=== PATIENT | male | born 1975 | race Caucasian/White ===

== ENCOUNTER 2018-10-03 13:59 | Emergency (ER) | payer BC ==
[2018-10-03 14:06] VITALS: TEMP 97.9
[2018-10-03 15:18] LABS: Basophils % (A) 0 %; Eosinophils # (A) 0.2 k/uL (0-0.7); Eosinophils % (A) 2 %; HCT 43.6 % (39.0-53.0); HGB 15.4 gm/dL (13.0-17.5); Lymphocytes # (A) 2.9 k/uL (1.0-4.8); Lymphocytes % (A) 39 %; MCH 31.2 pg (25.0-35.0); MCHC 35.3 g/dL (31.0-37.0); MCV 88.5 fL (80.0-100.0); Mean Platelet Volume 7.3; Monocytes # (A) 0.4 k/uL (0-1.0); Monocytes % (A) 5 %; Neutrophils # (A) 3.8 k/uL (1.3-7.7); Neutrophils % (A) 51 %; Platelet Count 225 k/uL (150-450); RBC 4.92 m/uL (4.30-5.90); RDW 12.9 % (11.5-15.5); WBC 7.4 k/uL (3.8-10.6)
[2018-10-03 15:27] LABS: INR 0.9 (<1.2); Partial Thromboplastin Time 22.8 sec (22.0-30.0)
[2018-10-03 15:28] LABS: Albumin 4.6 g/dL (3.5-5.0); Calcium 9.8 mg/dL (8.4-10.2); Potassium 4.2 mmol/L (3.5-5.1); Total Bilirubin 0.6 mg/dL (0.2-1.3); Total Protein 7.7 g/dL (6.3-8.2)
[2018-10-03 15:37] LABS: Creatine Kinase 95 U/L (55-170)
[2018-10-03 15:50] LABS: Troponin I <0.012 ng/mL (0.000-0.034)
--- NOTE | 2018-10-03 16:15 | XR ---
EXAMINATION TYPE: XR chest 2V DATE OF EXAM: 10/03/2018 COMPARISON: NONE HISTORY: Chest pain TECHNIQUE: Frontal and lateral views of the chest are obtained. FINDINGS: Heart and mediastinum are normal. Lungs are clear. Diaphragm is normal. Bony thorax appear s normal. IMPRESSION: Normal chest.
--- NOTE | 2018-10-03 16:21 | ED ---
Psych HPI - General Source: patient, RN notes reviewed Mode of arrival: wheelchair - History of Present Illness MD Complaint: suicidal ideation, feels depressed, other <Isreal Becerra - Last Filed: 10/03/18 16:51> <Victor M Muir - Last Filed: 10/03/18 17:52> - General Chief Complaint: Psychiatric Symptoms Stated Complaint: chest pain, EPS eval Time Seen by Provider: 10/03/18 14:31 - History of Present Illness Initial Comments: This is a 43-year-old male with a history of anxiety depression in the past who states he been feeling depressed and suicidal last several months. He states he as she took a handful his blood pressure medication today with the intent swallowing it changes minus better now. Additionally he's been having intermittent episodes of left-sided chest pain for past 3 days somewhat sharp in nature does seem to radiate somewhat. He denies any particular known injury though he states he is very anxious and tense. He states he's had hypertension since the age of 30 has cardiomegaly. He denies any cough or phlegm production at this time he is a former smoker who quit in 2008. No known heart or lung disease at this time. No other modifying factors. (Isreal Becerra) - Related Data Home Medications Medication Instructions Recorded Confirmed LORazepam [Ativan] 1 mg PO BID 10/03/18 10/03/18 Metoprolol Succinate (ER) [Toprol 100 mg PO DAILY 10/03/18 10/03/18 Xl] Omeprazole 20 mg PO DAILY 10/03/18 10/03/18 Triamterene-Hctz 37.5-25Mg 1 cap PO DAILY 10/03/18 10/03/18 [Dyazide 37.5-25 Capsule] Allergies Allergy/AdvReac Type Severity Reaction Status Date / Time No Known Allergies Allergy Verified 10/03/18 14:49 Review of Systems ROS Other: All systems not noted in ROS Statement are negative. <Isreal Becerra - Last Filed: 10/03/18 16:51> ROS Other: All systems not noted in ROS Statement are negative. <Victor M Muir - Last Filed: 10/03/18 17:52> ROS Statement: Those systems with pertinent positive or pertinent negative responses have been documented in the HPI. Past Medical History Past Medical History: GERD/Reflux, Hypertension History of Any Multi-Drug Resistant Organisms: None Reported Past Surgical History: Adenoidectomy, Tonsillectomy Past Psychological History: Anxiety, Depression Smoking Status: Never smoker Past Alcohol Use History: Occasional Past Drug Use History: Marijuana <Isreal Becerra - Last Filed: 10/03/18 16:51> General Exam Limitations: no limitations General appearance: alert, anxious Head exam: Present: atraumatic, normocephalic, normal inspection Eye exam: Present: normal appearance, PERRL, EOMI. Absent: scleral icterus, conjunctival injection, periorbital swelling ENT exam: Present: normal exam, mucous membranes moist Neck exam: Present: normal inspection, full ROM, other (No stridor JVD or bruits ). Absent: tenderness, meningismus, lymphadenopathy Respiratory exam: Present: normal lung sounds bilaterally, chest wall tenderness Cardiovascular Exam: Present: regular rate, normal rhythm, normal heart sounds. Absent: systolic murmur, diastolic murmur, rubs, gallop, clicks GI/Abdominal exam: Present: soft, normal bowel sounds. Absent: distended, tenderness, guarding, rebound, rigid Extremities exam: Present: normal inspection, full ROM, normal capillary refill. Absent: tenderness, pedal edema, joint swelling, calf tenderness Back exam: Present: normal inspection Neurological exam: Present: alert, oriented X3, CN II-XII intact Psychiatric exam: Present: depressed, suicidal ideation Skin exam: Present: warm, dry, intact, normal color. Absent: rash <Isreal Becerra - Last Filed: 10/03/18 16:51> <Victor M Muir - Last Filed: 10/03/18 17:52> - General Exam Comments Initial Comments: Physical well-developed well-nourished awake alert oriented 3 male (Isreal Becerra) Course <Isreal Becerra - Last Filed: 10/03/18 16:51> <Victor M Muir - Last Filed: 10/03/18 17:52> Vital Signs 10/03/18 14:02 Temperature 97.9 F Pulse Rate 86 Respiratory 16 Rate Blood Pressure 149/96 O2 Sat by Pulse 100 Oximetry - Reevaluation(s) Reevaluation #1: 10/03/18 16:46 The patient medically cleared. His lab work x-ray and EKG are all within normal limits. (Isreal Becerra) Reevaluation #2: 10/03/18 16:51 The patient's care is endorsed to Dr. Muir and her shift change. He has been cleared medically for evaluation by psychiatry. (Isreal Becerra) Medical Decision Making - Lab Data Result diagrams: 10/03/18 14:50 10/03/18 14:50 - EKG Data -: EKG Interpreted by Me EKG shows normal: sinus rhythm, axis, intervals, QRS complexes, ST-T waves (EKG done at the time of admission to the emergency department demonstrates an [place] [address] QRS duration 90 QT since QTC 366/ 437 this is a normal-appearing EKG.) Rate: normal - Radiology Data Radiology results: report reviewed (I did review the imaging and report no acute findings.), image reviewed <Isreal Becerra - Last Filed: 10/03/18 16:51> - Lab Data Result diagrams: 10/03/18 14:50 10/03/18 14:50 <Victor M Muir - Last Filed: 10/03/18 17:52> - Medical Decision Making Case endorsed to me with plans for mental health evaluation and disposition based on their assessment. Mental health did evaluate patient and determined she should be discharged and did provide follow-up information. (Victor M Muir) - Lab Data Lab Results 10/03/18 10/03/18 10/03/18 Range/Units 14:50 14:50 14:50 WBC 7.4 (3.8-10.6) k/uL RBC 4.92 (4.30-5.90) m/uL Hgb 15.4 (13.0-17.5) gm/dL Hct 43.6 (39.0-53.0) % MCV 88.5 (80.0-100.0) fL MCH 31.2 (25.0-35.0) pg MCHC 35.3 (31.0-37.0) g/dL RDW 12.9 (11.5-15.5) % Plt Count 225 (150-450) k/uL Neutrophils % 51 % Lymphocytes % 39 % Monocytes % 5 % Eosinophils % 2 % Basophils % 0 % Neutrophils # 3.8 (1.3-7.7) k/uL Lymphocytes # 2.9 (1.0-4.8) k/uL Monocytes # 0.4 (0-1.0) k/uL Eosinophils # 0.2 (0-0.7) k/uL Basophils # 0.0 (0-0.2) k/uL PT (9.0-12.0) sec INR (<1.2) APTT (22.0-30.0) sec D-Dimer (<0.60) mg/L FEU Sodium 141 (137-145) mmol/L Potassium 4.2 (3.5-5.1) mmol/L Chloride 104 (98-107) mmol/L Carbon Dioxide 27 (22-30) mmol/L Anion Gap 10 mmol/L BUN 14 (9-20) mg/dL Creatinine 1.16 (0.66-1.25) mg/dL Est GFR (CKD-EPI)AfAm 88 (>60 ml/min/1.73 sqM) Est GFR (CKD-EPI)NonAf 76 (>60 ml/min/1.73 sqM) Glucose 90 (74-99) mg/dL Calcium 9.8 (8.4-10.2) mg/dL Magnesium 2.0 (1.6-2.3) mg/dL Total Bilirubin 0.6 (0.2-1.3) mg/dL AST 27 (17-59) U/L ALT 70 (21-72) U/L Alkaline Phosphatase 87 (38-126) U/L Total Creatine Kinase 95 (55-170) U/L CK-MB (CK-2) 1.0 (0.0-2.4) ng/mL CK-MB (CK-2) Rel Index 1.1 Troponin I <0.012 (0.000-0.034) ng/mL Total Protein 7.7 (6.3-8.2) g/dL Albumin 4.6 (3.5-5.0) g/dL 10/03/18 10/03/18 Range/Units 14:50 14:50 WBC (3.8-10.6) k/uL RBC (4.30-5.90) m/uL Hgb (13.0-17.5) gm/dL Hct (39.0-53.0) % MCV (80.0-100.0) fL MCH (25.0-35.0) pg MCHC (31.0-37.0) g/dL RDW (11.5-15.5) % Plt Count (150-450) k/uL Neutrophils % % Lymphocytes % % Monocytes % % Eosinophils % % Basophils % % Neutrophils # (1.3-7.7) k/uL Lymphocytes # (1.0-4.8) k/uL Monocytes # (0-1.0) k/uL Eosinophils # (0-0.7) k/uL Basophils # (0-0.2) k/uL PT 10.0 (9.0-12.0) sec INR 0.9 (<1.2) APTT 22.8 (22.0-30.0) sec D-Dimer 0.29 (<0.60) mg/L FEU Sodium (137-145) mmol/L Potassium (3.5-5.1) mmol/L Chloride (98-107) mmol/L Carbon Dioxide (22-30) mmol/L Anion Gap mmol/L BUN (9-20) mg/dL Creatinine (0.66-1.25) mg/dL Est GFR (CKD-EPI)AfAm (>60 ml/min/1.73 sqM) Est GFR (CKD-EPI)NonAf (>60 ml/min/1.73 sqM) Glucose (74-99) mg/dL Calcium (8.4-10.2) mg/dL Magnesium (1.6-2.3) mg/dL Total Bilirubin (0.2-1.3) mg/dL AST (17-59) U/L ALT (21-72) U/L Alkaline Phosphatase (38-126) U/L Total Creatine Kinase (55-170) U/L CK-MB (CK-2) (0.0-2.4) ng/mL CK-MB (CK-2) Rel Index Troponin I (0.000-0.034) ng/mL Total Protein (6.3-8.2) g/dL Albumin (3.5-5.0) g/dL Disposition <Isreal Becerra - Last Filed: 10/03/18 16:51> Is patient prescribed a controlled substance at d/c from ED?: No Time of Disposition: 17:51 <Victor M Muir - Last Filed: 10/03/18 17:52> Clinical Impression: Depression, Suicidal ideation, Costochondritis Disposition: HOME SELF-CARE Condition: Stable Instructions (If sedation given, give patient instructions): Costochondritis ( ED), Depression (ED) Additional Instructions: Please follow-up with mental health services as directed. Please also follow- up with primary care physician in the next day or 2 for recheck. Return for worsening symptoms or other concerns. Referrals: Aidan Villegas DO [Primary Care Provider] - 1-2 days
[2018-10-03 18:09] VITALS: BP 143/96; PULSE 68; RESP 19
== END 2018-10-03 18:09 | disposition home or self-care (01) ==
LOC: EC 13:59
DX: F32.9 Major depressive disorder, single episode, unspecified (principal); M94.0 Chondrocostal junction syndrome [Tietze]; R45.851 Suicidal ideations; I11.9 Hypertensive heart disease without heart failure; K21.9 Gastro-esophageal reflux disease without esophagitis; F41.9 Anxiety disorder, unspecified; Z87.891 Personal history of nicotine dependence; Z79.899 Other long term (current) drug therapy
CPT/HCPCS: 36415; 71046; 80053; 82075; 82550; 82553; 83735; 84484; 85025; 85379; 85610; 85730; 93005; 99285

== ENCOUNTER 2021-07-13 04:54 | Emergency (ER) | payer BC, OTHER ==
[2021-07-13 05:01] VITALS: TEMP 98
--- NOTE | 2021-07-13 05:08 | ED ---
Chest Pain HPI - General Chief Complaint: Chest Pain Stated Complaint: Chest Pain Time Seen by Provider: 07/13/21 04:59 Source: patient, RN notes reviewed, old records reviewed Mode of arrival: ambulatory Limitations: no limitations - History of Present Illness Initial Comments: This is a 46-year-old male to the emergency department for evaluation patient is no significant medical history. Patient has had chest pain for 3-4 days noticed what work is normal at home. Symptoms come and go. Patient currently is having substernal chest pain going to throat. No other recent travels or sick contacts no cough congestion or shortness of breath. No prior history of chest pain MD Complaint: chest pain -: days(s) (3) Onset: during rest Pain Location: substernal Pain Radiation: back Severity: moderate Severity scale (1-10): 5 Quality: tightness Consistency: intermittent Improves With: nothing Worsens With: nothing Context: recent illness Anginal Symptoms: nausea Other Symptoms: cough Treatments Prior to Arrival: none - Related Data Home Medications Medication Instructions Recorded Confirmed LORazepam [Ativan] 1 mg PO BID 10/03/18 10/03/18 Metoprolol Succinate (ER) [Toprol 100 mg PO DAILY 10/03/18 10/03/18 Xl] Omeprazole 20 mg PO DAILY 10/03/18 10/03/18 Triamterene-Hctz 37.5-25Mg 1 cap PO DAILY 10/03/18 10/03/18 [Dyazide 37.5-25 Capsule] Allergies Allergy/AdvReac Type Severity Reaction Status Date / Time No Known Allergies Allergy Verified 07/13/21 05:01 Review of Systems ROS Statement: Those systems with pertinent positive or pertinent negative responses have been documented in the HPI. ROS Other: All systems not noted in ROS Statement are negative. Past Medical History Past Medical History: GERD/Reflux, Hypertension History of Any Multi-Drug Resistant Organisms: None Reported Past Surgical History: Adenoidectomy, Tonsillectomy Past Psychological History: Anxiety, Depression Smoking Status: Former smoker Past Alcohol Use History: Occasional Past Drug Use History: Marijuana General Exam General appearance: alert, in no apparent distress Head exam: Present: atraumatic, normocephalic, normal inspection Eye exam: Present: normal appearance, PERRL, EOMI. Absent: scleral icterus, conjunctival injection, periorbital swelling ENT exam: Present: normal exam, mucous membranes moist Neck exam: Present: normal inspection. Absent: tenderness, meningismus, lymphadenopathy Respiratory exam: Present: normal lung sounds bilaterally. Absent: respiratory distress, wheezes, rales, rhonchi, stridor Cardiovascular Exam: Present: regular rate, normal rhythm, normal heart sounds. Absent: systolic murmur, diastolic murmur, rubs, gallop, clicks GI/Abdominal exam: Present: soft, normal bowel sounds. Absent: distended, tenderness, guarding, rebound, rigid Extremities exam: Present: normal inspection, full ROM, normal capillary refill. Absent: tenderness, pedal edema, joint swelling, calf tenderness Back exam: Present: normal inspection Neurological exam: Present: alert, oriented X3, CN II-XII intact Psychiatric exam: Present: normal affect, normal mood Skin exam: Present: warm, dry, intact, normal color. Absent: rash Course Vital Signs 07/13/21 07/13/21 07/13/21 04:57 05:25 07:02 Temperature 98.0 F Pulse Rate 82 73 71 Respiratory 22 17 17 Rate Blood Pressure 155/95 138/92 128/84 O2 Sat by Pulse 99 98 98 Oximetry - Reevaluation(s) Reevaluation #1: Medical record is reviewed Patient symptoms are significantly improved in the emergency department Patient informed results and questions answered Chest Pain MDM - MDM 46 male to the emergency department for evaluation of chest pain atypical, no significant cardiac risk factors x-ray EKG and troponin are negative here in the ER patient can be discharged home Disposition Clinical Impression: Chest pain Disposition: HOME SELF-CARE Condition: Good Instructions (If sedation given, give patient instructions): Chest Pain (ED) Is patient prescribed a controlled substance at d/c from ED?: No Referrals: Aidan Holcomb MD [Primary Care Provider] - 1-2 days
[2021-07-13 05:26] VITALS: RESP 17
[2021-07-13 05:36] LABS: Basophils % (A) 1 %; Eosinophils # (A) 0.1 k/uL (0-0.7); Eosinophils % (A) 1 %; HCT 40.7 % (39.0-53.0); HGB 14.6 gm/dL (13.0-17.5); Hyperchromasia Slight; Lymphocytes # (A) 2.2 k/uL (1.0-4.8); Lymphocytes % (A) 35 %; MCHC 35.8 g/dL (31.0-37.0); MCV 86.6 fL (80.0-100.0); Mean Platelet Volume 7.4; Monocytes # (A) 0.3 k/uL (0-1.0); Monocytes % (A) 5 %; Neutrophils # (A) 3.6 k/uL (1.3-7.7); Neutrophils % (A) 56 %; Platelet Count 222 k/uL (150-450); RDW 11.7 % (11.5-15.5); WBC 6.4 k/uL (3.8-10.6)
[2021-07-13 05:49] LABS: Partial Thromboplastin Time 22.3 sec (22.0-30.0); Prothrombin Time 10.3 sec (9.0-12.0)
[2021-07-13 06:22] LABS: ALT 42 U/L (4-49); AST 25 U/L (17-59); African American GFR (CKD) >90 (>60 ml/min/1.73 sqM); Albumin 4.3 g/dL (3.5-5.0); Alkaline Phosphatase 87 U/L (38-126); Anion Gap 7 mmol/L; Blood Urea Nitrogen 10 mg/dL (9-20); Calcium 9.2 mg/dL (8.4-10.2); Carbon Dioxide 26 mmol/L (22-30); Chloride 102 mmol/L (98-107); Glucose 102 mg/dL (74-99); Lipase 143 U/L (23-300); Magnesium 2.2 mg/dL (1.6-2.3); Non-African American GFR(CKD) >90 (>60 ml/min/1.73 sqM); Potassium 3.6 mmol/L (3.5-5.1); Sodium 135 mmol/L (137-145); Total Bilirubin 0.5 mg/dL (0.2-1.3); Total Protein 7.1 g/dL (6.3-8.2)
--- NOTE | 2021-07-13 06:45 | XR ---
EXAMINATION TYPE: XR chest 2V DATE OF EXAM: 07/13/2021 COMPARISON: Chest x-ray October 03, 2018 HISTORY: Chest pain. TECHNIQUE: Frontal and lateral views of the chest are obtained. FINDINGS: Overlying EKG leads redemonstrated. There is no new suspicious focal air space opacity, pl eural effusion, or pneumothorax seen. The cardiac silhouette size is stable and within normal limits . The osseous structures are intact. IMPRESSION: No acute process. No significant change from prior.
[2021-07-13 07:02] VITALS: BP 128/84; PULSE 71
== END 2021-07-13 07:03 | disposition home or self-care (01) ==
LOC: EC 04:54
DX: R07.89 Other chest pain (principal); I10 Essential (primary) hypertension; K21.9 Gastro-esophageal reflux disease without esophagitis; F12.90 Cannabis use, unspecified, uncomplicated; Z87.891 Personal history of nicotine dependence; Z79.899 Other long term (current) drug therapy
CPT/HCPCS: 36415; 71046; 80053; 83690; 83735; 83880; 84484; 85025; 85379; 85610; 85730; 93005; 99285

== ENCOUNTER 2021-07-17 13:42 | Emergency (ER) | payer OTHER ==
[2021-07-17 14:40] LABS: Basophils % (A) 1 %; Eosinophils # (A) 0.1 k/uL (0-0.7); Eosinophils % (A) 1 %; HCT 43.8 % (39.0-53.0); HGB 15.9 gm/dL (13.0-17.5); Lymphocytes # (A) 2.1 k/uL (1.0-4.8); Lymphocytes % (A) 29 %; MCH 31.9 pg (25.0-35.0); MCHC 36.3 g/dL (31.0-37.0); MCV 87.8 fL (80.0-100.0); Mean Platelet Volume 7.4; Monocytes # (A) 0.5 k/uL (0-1.0); Monocytes % (A) 6 %; Neutrophils # (A) 4.5 k/uL (1.3-7.7); Neutrophils % (A) 62 %; Platelet Count 269 k/uL (150-450); RBC 4.99 m/uL (4.30-5.90); RDW 11.8 % (11.5-15.5); WBC 7.4 k/uL (3.8-10.6)
[2021-07-17 14:50] LABS: ALT 44 U/L (4-49); AST 25 U/L (17-59); African American GFR (CKD) >90 (>60 ml/min/1.73 sqM); Albumin 4.9 g/dL (3.5-5.0); Alkaline Phosphatase 100 U/L (38-126); Anion Gap 10 mmol/L; Blood Urea Nitrogen 12 mg/dL (9-20); Calcium 9.7 mg/dL (8.4-10.2); Carbon Dioxide 26 mmol/L (22-30); Chloride 99 mmol/L (98-107); Glucose 87 mg/dL (74-99); INR 0.9 (<1.2); Non-African American GFR(CKD) >90 (>60 ml/min/1.73 sqM); Potassium 4.1 mmol/L (3.5-5.1); Prothrombin Time 9.9 sec (9.0-12.0); Sodium 135 mmol/L (137-145); Total Bilirubin 0.6 mg/dL (0.2-1.3); Total Protein 7.9 g/dL (6.3-8.2)
--- NOTE | 2021-07-17 17:31 | ED ---
General Adult HPI - General Chief complaint: Dizziness Stated complaint: Low BP, Dizziness Time Seen by Provider: 07/17/21 17:05 Source: patient Mode of arrival: wheelchair Limitations: no limitations - History of Present Illness Initial comments: Dictation was produced using [employer] dictation software. please excuse any grammatical, word or spelling errors. Chief Complaint: 46-year-old male presents emergency department for episodic symptoms of low blood pressure, tingling in total body warmth History of Present Illness: He is a 38-year-old male has past medical history of hypertension. Patient takes multiple blood pressure medications. Denies medications for several months. Patient recently recovered from coronavirus that he contracted back in June. Since then he's been having these strange symptoms of palpitations, total body flushing and episodes of hand tingling. Patient has a blood pressure monitor at home. During these episodes he checks his blood pressure noticed a his diastolic blood pressure is sometimes even as low as 20s. It does have a history of heart failure. Since that his ejection fraction is 45%. Patient denies any symptoms now. Denies any symptoms currently. No shortness of breath. The ROS documented in this emergency department record has been reviewed and confirmed by me. Those systems with pertinent positive or negative responses have been documented in the HPI. All other systems are other negative and/or noncontributory. PHYSICAL EXAM: General Impression: Alert and oriented x3, not in acute distress HEENT: Normocephalic atraumatic, extra-ocular movements intact, pupils equal and reactive to light bilaterally, mucous membranes moist. Cardiovascular: Heart regular rate and rhythm Chest: Able to complete full sentences, no retractions, no tachypnea Musculoskeletal: Pulses present and equal in all extremities, no peripheral edema Motor: no focal deficits noted Neurological: CN II-XII grossly intact, no focal motor or sensory deficits noted Skin: Intact with no visualized rashes Psych: Normal affect and mood ED course: 46 yo well-appearing male presents emergency department for episodes of strange symptoms that developed after norberto Covid. Signs upon arrival are within acceptable limits. Physical examination is benign. EKG is unremarkable. Advanced triage protocol was initiated for this gentleman. He did have labs ordered by triage staff. CBC, coag panel, metabolic panel is unremarkable. Patient was observed in emergency department for approximately 3 hours and 46 minutes. Patient seen at bedside at 5:20 PM. Patient states that he feels well currently. His labs are unremarkable and his EKG is benign. Patient has appointment with his primary care physician on Thursday. Patient told that he would be a good candidate for Holter monitoring and wraps adjustments to his blood pressure medications. Return precautions discussed. Patient will be discharged. EKG interpretation: Ventricular rate 82, normal sinus rhythm,. 146, QRS 94, QTC 418. No WA prolongation, no QTC prolongation, no ST or T-wave changes noted. Overall, this EKG is unremarkable - Related Data Home Medications Medication Instructions Recorded Confirmed LORazepam [Ativan] 1 mg PO BID 10/03/18 10/03/18 Metoprolol Succinate (ER) [Toprol 100 mg PO DAILY 10/03/18 10/03/18 Xl] Omeprazole 20 mg PO DAILY 10/03/18 10/03/18 Triamterene-Hctz 37.5-25Mg 1 cap PO DAILY 10/03/18 10/03/18 [Dyazide 37.5-25 Capsule] Allergies Allergy/AdvReac Type Severity Reaction Status Date / Time No Known Allergies Allergy Verified 07/13/21 05:01 Review of Systems ROS Statement: Those systems with pertinent positive or pertinent negative responses have been documented in the HPI. ROS Other: All systems not noted in ROS Statement are negative. Past Medical History Past Medical History: GERD/Reflux, Hypertension History of Any Multi-Drug Resistant Organisms: None Reported Past Surgical History: Adenoidectomy, Tonsillectomy Past Psychological History: Anxiety, Depression Smoking Status: Former smoker Past Alcohol Use History: Occasional Past Drug Use History: Marijuana General Exam Limitations: no limitations Course Vital Signs 07/17/21 14:15 Temperature 98.2 F Pulse Rate 86 Respiratory 19 Rate Blood Pressure 125/81 O2 Sat by Pulse 98 Oximetry Medical Decision Making - Lab Data Result diagrams: 07/17/21 14:33 07/17/21 14:33 Lab Results 07/17/21 07/17/21 07/17/21 Range/Units 14:33 14:33 14:33 WBC 7.4 (3.8-10.6) k/uL RBC 4.99 (4.30-5.90) m/uL Hgb 15.9 (13.0-17.5) gm/dL Hct 43.8 (39.0-53.0) % MCV 87.8 (80.0-100.0) fL MCH 31.9 (25.0-35.0) pg MCHC 36.3 (31.0-37.0) g/dL RDW 11.8 (11.5-15.5) % Plt Count 269 (150-450) k/uL MPV 7.4 Neutrophils % 62 % Lymphocytes % 29 % Monocytes % 6 % Eosinophils % 1 % Basophils % 1 % Neutrophils # 4.5 (1.3-7.7) k/uL Lymphocytes # 2.1 (1.0-4.8) k/uL Monocytes # 0.5 (0-1.0) k/uL Eosinophils # 0.1 (0-0.7) k/uL Basophils # 0.0 (0-0.2) k/uL PT 9.9 (9.0-12.0) sec INR 0.9 (<1.2) Sodium 135 L (137-145) mmol/L Potassium 4.1 (3.5-5.1) mmol/L Chloride 99 (98-107) mmol/L Carbon Dioxide 26 (22-30) mmol/L Anion Gap 10 mmol/L BUN 12 (9-20) mg/dL Creatinine 0.88 (0.66-1.25) mg/dL Est GFR (CKD-EPI)AfAm >90 (>60 ml/min/1.73 sqM) Est GFR (CKD-EPI)NonAf >90 (>60 ml/min/1.73 sqM) Glucose 87 (74-99) mg/dL Calcium 9.7 (8.4-10.2) mg/dL Total Bilirubin 0.6 (0.2-1.3) mg/dL AST 25 (17-59) U/L ALT 44 (4-49) U/L Alkaline Phosphatase 100 (38-126) U/L Troponin I (0.000-0.034) ng/mL Total Protein 7.9 (6.3-8.2) g/dL Albumin 4.9 (3.5-5.0) g/dL 07/17/21 Range/Units 14:33 WBC (3.8-10.6) k/uL RBC (4.30-5.90) m/uL Hgb (13.0-17.5) gm/dL Hct (39.0-53.0) % MCV (80.0-100.0) fL MCH (25.0-35.0) pg MCHC (31.0-37.0) g/dL RDW (11.5-15.5) % Plt Count (150-450) k/uL MPV Neutrophils % % Lymphocytes % % Monocytes % % Eosinophils % % Basophils % % Neutrophils # (1.3-7.7) k/uL Lymphocytes # (1.0-4.8) k/uL Monocytes # (0-1.0) k/uL Eosinophils # (0-0.7) k/uL Basophils # (0-0.2) k/uL PT (9.0-12.0) sec INR (<1.2) Sodium (137-145) mmol/L Potassium (3.5-5.1) mmol/L Chloride (98-107) mmol/L Carbon Dioxide (22-30) mmol/L Anion Gap mmol/L BUN (9-20) mg/dL Creatinine (0.66-1.25) mg/dL Est GFR (CKD-EPI)AfAm (>60 ml/min/1.73 sqM) Est GFR (CKD-EPI)NonAf (>60 ml/min/1.73 sqM) Glucose (74-99) mg/dL Calcium (8.4-10.2) mg/dL Total Bilirubin (0.2-1.3) mg/dL AST (17-59) U/L ALT (4-49) U/L Alkaline Phosphatase (38-126) U/L Troponin I <0.012 (0.000-0.034) ng/mL Total Protein (6.3-8.2) g/dL Albumin (3.5-5.0) g/dL Disposition Clinical Impression: Palpitations Disposition: HOME SELF-CARE Condition: Good Instructions (If sedation given, give patient instructions): Heart Palpitations (ED) Is patient prescribed a controlled substance at d/c from ED?: No Referrals: Aidan Holcomb MD [Primary Care Provider] - 1-2 days
[2021-07-17 20:33] VITALS: BP 140/74; PULSE 70; RESP 18; TEMP 98
== END 2021-07-17 18:10 | disposition home or self-care (01) ==
LOC: EC 13:42
DX: R00.2 Palpitations (principal); F32.A Depression, unspecified; F41.9 Anxiety disorder, unspecified; I10 Essential (primary) hypertension; F12.90 Cannabis use, unspecified, uncomplicated; Z87.891 Personal history of nicotine dependence; Z72.89 Other problems related to lifestyle
CPT/HCPCS: 36415; 80053; 84484; 85025; 85610; 93005; 99284

== ENCOUNTER 2024-01-23 14:58 | Emergency (ER) | payer OTHER ==
[2024-01-23 15:05] VITALS: RESP 16
--- NOTE | 2024-01-23 15:32 | ED ---
General Adult HPI - General Chief complaint: Dizziness Stated complaint: dizzy SOB Time Seen by Provider: 01/23/24 14:59 Source: patient Mode of arrival: ambulatory Limitations: no limitations - History of Present Illness Initial comments: Dictation was produced using [employer] dictation software. please excuse any grammatical, word or spelling errors. Chief Complaint: 48-year-old male presents emergency department with headache History of Present Illness: Patient is a 48-year-old male presents emergency department headache his headache began at approximately 3. States that it was a severe headache. Patient states that is also thunderclap in nature. Motrin went back to bed felt fine. He woke up still had a mild headache though significantly improved. He checked his blood pressure which is generally controlled well with antihypertensive medications. Found that it was high and went to the urgent care. He was evaluated the urgent care told to come to the ER for further care. Patient [place] any numbness tingling paresthesias. He states that the headache is significantly improved. States that is holoacranial throbbing in nature. Patient denies any history of headaches. The ROS documented in this emergency department record has been reviewed and confirmed by me. Those systems with pertinent positive or negative responses have been documented in the HPI. All other systems are other negative and/or noncontributory. - Related Data Home Medications Medication Instructions Recorded Confirmed LORazepam [Ativan] 1 mg PO BID 10/03/18 10/03/18 Metoprolol Succinate (ER) [Toprol 100 mg PO DAILY 10/03/18 10/03/18 Xl] Omeprazole 20 mg PO DAILY 10/03/18 10/03/18 Triamterene-Hctz 37.5-25Mg 1 cap PO DAILY 10/03/18 10/03/18 [Dyazide 37.5-25 Capsule] Allergies Allergy/AdvReac Type Severity Reaction Status Date / Time No Known Allergies Allergy Verified 07/13/21 05:01 Review of Systems ROS Statement: Those systems with pertinent positive or pertinent negative responses have been documented in the HPI. ROS Other: All systems not noted in ROS Statement are negative. Past Medical History Past Medical History: GERD/Reflux, Hypertension History of Any Multi-Drug Resistant Organisms: None Reported Past Surgical History: Adenoidectomy, Tonsillectomy Past Psychological History: Anxiety, Depression Smoking Status: Former smoker Past Alcohol Use History: Occasional Past Drug Use History: Marijuana General Exam - General Exam Comments Initial Comments: PHYSICAL EXAM: General Impression: Alert and oriented x3, not in acute distress HEENT: Normocephalic atraumatic, extra-ocular movements intact, pupils equal and reactive to light bilaterally, mucous membranes moist. Cardiovascular: Heart regular rate and rhythm Chest: Able to complete full sentences, no retractions, no tachypnea Abdomen: abdomen soft, non-tender, non-distended, no organomegaly Musculoskeletal: Pulses present and equal in all extremities, no peripheral edema Motor: no focal deficits noted Neurological: CN II-XII grossly intact, no focal motor or sensory deficits noted Skin: Intact with no visualized rashes Psych: Normal affect and mood Limitations: no limitations Course Vital Signs 01/23/24 01/23/24 15:03 15:29 Temperature 98.3 F Pulse Rate 76 Respiratory 16 Rate Blood Pressure 165/107 138/100 O2 Sat by Pulse 98 Oximetry EKG Findings - EKG Comments: EKG Findings:: My EKG interpretation: Ventricular rate 71, sinus rhythm,. 142, cures 113, QTc 409. No [place] prolongation, no QTC prolongation, no ST or T-wave changes noted. Overall, this EKG is unremarkable Medical Decision Making - Medical Decision Making Was pt. sent in by a medical professional or institution (DIANA [facility], FOOD PRESERVATION SCIENTIST, urgent care, hospital, or [facility]...) When possible be specific @ -No Did you speak to anyone other than the patient for history (EMS, parent, family, police, friend...)? What history was obtained from this source @ -No Did you review nursing and triage notes (agree or disagree)? Why? @ -I reviewed and agree with nursing and triage notes Were old charts reviewed (outside hosp., previous admission, EMS record, old EKG, old radiological studies, urgent care reports/EKG's, [facility] records)? Report findings @ -No old charts were reviewed Differential Diagnosis (chest pain, altered mental status, abdominal pain women, abdominal pain men, vaginal bleeding, musculoskeletal, weakness, fever, dyspnea, syncope, headache, dizziness, GI bleed, back pain, seizure, CVA, palpatations, mental health)? @ -Differential Headache: Migraine, tension, cluster, carbon monoxide, central venous thrombosis, pension karma temporal arteritis, acute closure glaucoma, intercranial hemorrhage, mastoiditis, sinusitis, head injury, this is not meant to be an all-inclusive list. EKG interpreted by me (3pts min.). @ -As above X-rays interpreted by me (1pt min.). @ -Chest x-ray shows no acute processes CT interpreted by me (1pt min.). @ -CT brain is negative for any acute processes U/S interpreted by me (1pt. min.). @ -None done What testing was considered but not performed or refused? (CT, X-rays, U/S, labs)? Why? @ -None What meds were considered but not given or refused? Why? @ -None Did you discuss the management of the patient with other professionals (professionals i.e. , PA, FOOD PRESERVATION SCIENTIST, lab, RT, psych nurse, social work therapist, highway administrative engineer, teacher, regulatory compliance officer, pillowcase folder)? Give summary @ -No Was smoking cessation discussed for >3mins.? @ -No Was critical care preformed (if so, how long)? @ -No Were there social determinants of health that impacted care today? How? (Homelessness, low income, unemployed, alcoholism, drug addiction, transportation, low edu. Level, literacy, decrease access to med. care, [facility], rehab)? @ -No Was there de-escalation of care discussed even if they declined (Discuss DNR or withdrawal of care, Hospice)? DNR status @ -No What co-morbidities impacted this encounter? (DM, HTN, Smoking, COPD, CAD, Cancer, CVA, ARF, Chemo, Hep., AIDS, mental health diagnosis, sleep apnea, morbid obesity)? @ -None Was patient admitted / discharged? Hospital course, mention meds given and route, prescriptions, significant lab abnormalities, going to OR and other pertinent info. @ -48-year-old male presents to the emergency department with headache. Patient has history of controlled hypertension managed with medications. Vital signs upon arrival are within acceptable limits. Patient well-appearing at the bedside complaining of headache that is holocranial and focused to his left forehead area. Evaluation obtained. Patient given headache cocktail. Chest x- ray and CT brain are negative. Reevaluated again at the bedside at 5:00 PM. Risk and benefits were discussed regarding lumbar puncture since patient initially complained of worse headache of his life along with thunderclap. He then said that he went to bed with a headache last night. Patient well- appearing at the bedside without any other associated symptoms. Recommended that lumbar puncture be performed to rule out any sort of intracranial bleed. Patient felt that that was not necessary and he feels significantly better. He was also offered hospital admission consultation to neurology. Patient would prefer to be discharged and return to the emergency department if his symptoms acutely worsen. Patient well-appearing at the bedside states that his headache is almost resolved. Patient discharged. Told to follow-up with primary care doctor. Strict return precautions discussed. Undiagnosed new problem with uncertain prognosis? @ -No Drug Therapy requiring intensive monitoring for toxicity (Heparin, Nitro, Insulin, Cardizem)? @ -No Were any procedures done? @ -No Diagnosis/symptom? Acute, or Chronic, or Acute on Chronic? Uncomplicated (without systemic symptoms) or Complicated (systemic symptoms)? @ -Acute headache Side effects of treatment? @ -No Exacerbation, Progression, or Severe Exacerbation? @ -No Poses a threat to life or bodily function? How? (Chest pain, [place], [place], pneumonia, PE, COPD, DKA, ARF, appy, cholecystitis, CVA, Diverticulitis, Homicidal, Suicidal, threat to staff... and all critical care pts) @ -No - Lab Data Result diagrams: 01/23/24 15:54 01/23/24 15:54 Lab Results 01/23/24 01/23/24 Range/Units 15:54 15:54 WBC 8.3 (3.8-10.6) k/uL RBC 4.90 (4.30-5.90) m/uL Hgb 15.5 (13.0-17.5) gm/dL Hct 43.4 (39.0-53.0) % MCV 88.4 (80.0-100.0) fL MCH 31.5 (25.0-35.0) pg MCHC 35.7 (31.0-37.0) g/dL RDW 13.5 (11.5-15.5) % Plt Count 219 (150-450) k/uL MPV 8.2 Neutrophils % 60 % Lymphocytes % 30 % Monocytes % 7 % Eosinophils % 1 % Basophils % 0 % Neutrophils # 4.9 (1.3-7.7) k/uL Lymphocytes # 2.5 (1.0-4.8) k/uL Monocytes # 0.6 (0-1.0) k/uL Eosinophils # 0.1 (0-0.7) k/uL Basophils # 0.0 (0-0.2) k/uL Sodium 137 (137-145) mmol/L Potassium 3.8 (3.5-5.1) mmol/L Chloride 105 (98-107) mmol/L Carbon Dioxide 25 (22-30) mmol/L Anion Gap 7 mmol/L BUN 12 (9-20) mg/dL Creatinine 0.92 (0.66-1.25) mg/dL Est GFR (CKD-EPI)AfAm >90 (>60 ml/min/1.73 sqM) Est GFR (CKD-EPI)NonAf >90 (>60 ml/min/1.73 sqM) Glucose 78 (74-99) mg/dL Calcium 9.3 (8.4-10.2) mg/dL Total Bilirubin 0.6 (0.2-1.3) mg/dL AST 32 (17-59) U/L ALT 52 H (4-49) U/L Alkaline Phosphatase 92 (38-126) U/L Total Protein 7.4 (6.3-8.2) g/dL Albumin 4.7 (3.5-5.0) g/dL Disposition Clinical Impression: Headache Disposition: HOME SELF-CARE Condition: Good Instructions (If sedation given, give patient instructions): Acute Headache (ED) Is patient prescribed a controlled substance at d/c from ED?: No Referrals: Aidan Holcomb MD [Primary Care Provider] - 1-2 days Time of Disposition: 17:18
[2024-01-23] MEDS: SODIUM CHLORIDE 0.9% 1,000 ML IV STA (16:00)
[2024-01-23] MEDS: ONDANSETRON 4 MG/2 ML VIAL IVP STA (16:01)
[2024-01-23] MEDS: diphenhydrAMINE 50 MG/ML 1 ML VIAL IVP STA (16:06)
[2024-01-23 16:26] LABS: Basophils % (A) 0 %; Eosinophils # (A) 0.1 k/uL (0-0.7); Eosinophils % (A) 1 %; HCT 43.4 % (39.0-53.0); HGB 15.5 gm/dL (13.0-17.5); Lymphocytes # (A) 2.5 k/uL (1.0-4.8); Lymphocytes % (A) 30 %; MCH 31.5 pg (25.0-35.0); MCHC 35.7 g/dL (31.0-37.0); MCV 88.4 fL (80.0-100.0); Mean Platelet Volume 8.2; Monocytes # (A) 0.6 k/uL (0-1.0); Monocytes % (A) 7 %; Neutrophils # (A) 4.9 k/uL (1.3-7.7); Neutrophils % (A) 60 %; Platelet Count 219 k/uL (150-450); RDW 13.5 % (11.5-15.5); WBC 8.3 k/uL (3.8-10.6)
[2024-01-23 16:28] LABS: ALT 52 U/L (4-49); AST 32 U/L (17-59); African American GFR (CKD) >90 (>60 ml/min/1.73 sqM); Albumin 4.7 g/dL (3.5-5.0); Alkaline Phosphatase 92 U/L (38-126); Anion Gap 7 mmol/L; Blood Urea Nitrogen 12 mg/dL (9-20); Calcium 9.3 mg/dL (8.4-10.2); Carbon Dioxide 25 mmol/L (22-30); Chloride 105 mmol/L (98-107); Glucose 78 mg/dL (74-99); Non-African American GFR(CKD) >90 (>60 ml/min/1.73 sqM); Potassium 3.8 mmol/L (3.5-5.1); Sodium 137 mmol/L (137-145); Total Bilirubin 0.6 mg/dL (0.2-1.3); Total Protein 7.4 g/dL (6.3-8.2)
--- NOTE | 2024-01-23 16:49 | XR ---
EXAMINATION TYPE: XR chest 2V DATE OF EXAM: 01/23/2024 3:35 PM CLINICAL INDICATION:Male, 48 years old with history of hemoptysis; [facility] COMPARISON: Chest radiographs from TECHNIQUE: XR chest 2V Frontal and lateral views of the chest. FINDINGS: Lungs/Pleura: There is no evidence of pleural effusion, focal consolidation, or pneumothorax. Pulmonary vascularity: Unremarkable. Heart/mediastinum: Cardiomediastinal silhouette is unremarkable. Musculoskeletal: No acute osseous pathology. IMPRESSION: No acute cardiopulmonary disease/process.
--- NOTE | 2024-01-23 17:03 | CT ---
EXAMINATION TYPE: CT brain wo con CT DLP: 1168.4 mGycm, Automated exposure control for dose reduction was used. DATE OF EXAM: 01/23/2024 3:43 PM COMPARISON: None. CLINICAL INDICATION:Male, 48 years old with history of hemoptysis, Dizziness. TECHNIQUE: Brain: Axial CT images of the brain were obtained with coronal and sagittal reformats created and rev iewed. Contrast used: None. Oral contrast used: None. FINDINGS: Brain: Extra-axial spaces: No abnormal extra-axial fluid collections. Ventricular system: Within normal limits Cerebral parenchyma: No acute intraparenchymal hemorrhage or mass effect. The haas-white junction is well differentiated. Cerebellum: Unremarkable. Mass effect: No evidence of midline shift. Intracranial vasculature: unremarkable Soft tissues: Normal. Calvarium/osseous structures: No depressed skull fracture. Paranasal sinuses and mastoid air cells: Mild scattered paranasal sinus disease. Visualized orbits: Orbital contents are intact. IMPRESSION: No acute intracranial process.
[2024-01-23] MEDS: KETOROLAC 15 MG/ML 1 ML VIAL IVP STA (17:22)
[2024-01-23 17:29] VITALS: BP 106/67; PULSE 87; TEMP 98
== END 2024-01-23 17:29 | disposition home or self-care (01) ==
LOC: EC 14:58
DX: R51.9 Headache, unspecified (principal); F12.90 Cannabis use, unspecified, uncomplicated; Z87.891 Personal history of nicotine dependence
CPT/HCPCS: 99285; 96374; 96375 ×2; 96361; 36415; 93005; 80053; 85025; 71046; 70450; J1200; J2405; J1885

== ENCOUNTER → 2024-08-01 | Outpatient (CLI) | payer OTHER ==
[2024-08-01 10:48] VITALS: BP 142/80; PULSE 110; RESP 16; TEMP 98.2
--- NOTE | 2024-08-01 11:20 | P.SLEEP ---
History of Present Illness DATE: 08/01/2024 CONSULTATION/NEW PATIENT EVALUATION HISTORY OF PRESENT ILLNESS/SLEEP-WAKE EVALUATION: 49-year-old gentleman had been evaluated in the sleep center for possible obstructive sleep apnea hypopnea syndrome. SLEEP SCHEDULE: Usually sleep schedule from 10 PM to 7:30 AM on weekdays and 8 to 9 AM on weekend. FALLING ASLEEP: Usually no significant problems with falling asleep. DURING SLEEP: Patient has occasional mild snoring, has episodes of stop breathing during the sleep, palpitation, sweating. Patient wakes up from sleep up to 3 times with nocturia, limb movements during the sleep. No history of hypnogogical hallucinations, sleep paralysis, or cataplexy. DURING THE DAY/WAKE STATE: In the morning patient wake up tired, has episodes of depression and anxiety, sexual dysfunction. Robert sleepiness scale is 2. Patient usually does not take naps. PAST MEDICAL HISTORY: Atrial fibrillation, hypertension, seasonal allergy, headaches, acid reflux, anxiety. PAST SURGICAL HISTORY: Tonsillectomy, adenoidectomy. MEDICATIONS: Please see below. SOCIAL HISTORY: Please see below. FAMILY HISTORY: Please see below. REVIEW OF SYSTEMS: Multiple awakenings from sleep, witnessed sleep apneas. No fevers. No double vision. No recent chest pain. No shortness of breath. No abdominal pain. No bleeding episodes. No blood in urine. No seizure episodes. PHYSICAL EXAMINATION: GENERAL: A pleasant patient without any distress. VITAL SIGNS: Please see below, weight 286 pounds, BMI 37.7. HEENT: PERRLA, EOMI. Evaluation of oropharynx showed tongue protrudes midline, low position of soft palate Mallampati 3, big uvula. NECK: Supple. No JVD. Thyroid is not palpable. 16-3/4 inches in circumference. LUNGS: Clear to percussion and to auscultation. Good air exchange. No wheezing or rhonchi. HEART: S1, S2 regular. No murmurs, gallops or rubs. ABDOMEN: Soft and nontender. Bowel sounds are present. No organomegaly appreciated. EXTREMITIES: No clubbing or cyanosis. IRON ERECTOR: Awake, alert, and oriented x3. Cranial nerves 2 to 7 intact. There is no fasciculation or atrophy noted. No focal deficits observed. ASSESSMENT: 1. Multiple awakenings from sleep, small oropharyngeal airspace, witnessed episodes of stop breathing during the sleep. Obstructive sleep apnea hypopnea syndrome. 2. Obesity, BMI 37.7. 3. Atrial fibrillation. 4. Hypertension. 5 seasonal allergy. 6 . Acid reflux. 7. Anxiety. 8. Status post tonsillectomy and adenoidectomy. PLAN: 1. Polysomnography for evaluation of patient's breathing during sleep. 2. CPAP/BiPAP titration if sleep study confirms obstructive sleep apnea- hypopnea syndrome. 3. Preferable position during sleep on the side. 4. No driving if patient feels any sleepiness. Patient is aware of civil and criminal liability for unsafe driving. 5. Sleep hygiene with regular sleep time for at least 7.5-8 hours. 6. Watching and losing weight. Thank you very much for referring this patient for consultation. Sincerely, Cy Orozco MD, PhD, FAASM. Diplomat of [place] [employer], Sleep Medicine Board by [place] [employer] [place] [employer] [facility] [place] cc: Ramin Wilder DO Past Medical History Past Medical History: Atrial Fibrillation, GERD/Reflux, Hypertension History of Any Multi-Drug Resistant Organisms: None Reported Past Surgical History: Adenoidectomy, Tonsillectomy Past Anesthesia/Blood Transfusion Reactions: No Reported Reaction Past Psychological History: Anxiety, Depression Smoking Status: Former smoker Past Alcohol Use History: Occasional Past Drug Use History: Marijuana - Past Family History Mother Family Medical History: Coronary Artery Disease (CAD), CVA/TIA, Hypertension Father Additional Family Medical History / Comment(s): Emphysema Medications and Allergies Home Medications Medication Instructions Recorded Confirmed Type LORazepam [Ativan] 1 mg PO BID 10/03/18 08/01/24 History Metoprolol Succinate (ER) [Toprol 100 mg PO DAILY 10/03/18 08/01/24 History Xl] Omeprazole 20 mg PO DAILY 10/03/18 08/01/24 History Triamterene-Hctz 37.5-25Mg 1 cap PO DAILY 10/03/18 08/01/24 History [Dyazide 37.5-25 Capsule] Apixaban [Eliquis] 5 mg PO DAILY 08/01/24 08/01/24 History FLUoxetine HCL [PROzac] 20 mg PO DAILY 08/01/24 08/01/24 History dilTIAZem HCL [dilTIAZem HCL 24Hr 180 mg PO DAILY 08/01/24 08/01/24 History ER (CD)] Allergies Allergy/AdvReac Type Severity Reaction Status Date / Time No Known Allergies Allergy Verified 07/13/21 05:01 Physical Exam Vitals: Vital Signs Temp Pulse Resp BP Pulse Ox 08/01/24 10:46 98.2 F 110 H 16 142/80 98 Intake and Output 07/31/24 08/01/24 08/01/24 22:59 06:59 14:59 Other: Weight 129.727 kg Sleep Note - Sleep Data ESS Total: 2 - Sleep Note Sleep Note: Temperature: 98.2 F Pulse Rate: 110 Respiratory Rate: 16 Blood Pressure: 142/80 SpO2: 98 Height: 6 ft 1 in Weight: 129.727 kg BMI: Neck Circumference: 16.7
== END ==
LOC: 3 N SLEEP 10:38
PROVIDERS: ATTEND Internal Medicine
DX: G47.33 Obstructive sleep apnea (adult) (pediatric) (principal); E66.9 Obesity, unspecified; Z68.37 Body mass index [BMI] 37.0-37.9, adult; I10 Essential (primary) hypertension; I48.91 Unspecified atrial fibrillation; K21.9 Gastro-esophageal reflux disease without esophagitis; F41.9 Anxiety disorder, unspecified; Z98.890 Other specified postprocedural states; Z87.891 Personal history of nicotine dependence; Z79.01 Long term (current) use of anticoagulants; Z79.899 Other long term (current) drug therapy
CPT/HCPCS: 99211

== ENCOUNTER 2024-08-24 19:45 | Outpatient (CLI) | payer OTHER ==
--- NOTE | 2024-08-25 15:38 | P.PCN ---
Description of Procedure: POLYSOMNOGRAPHY REPORT PROCEDURE(S)/DATE(S): Polysomnography 08/24/2024 CLINICAL: Patient has been seen in the sleep center for evaluation of obstructive sleep apnea-hypopnea syndrome. Please see my consultation. Sleep study has been done for evaluation of patient breathing during the sleep. PROCEDURE: The standard montage for clinical polysomnography included the electroencephalogram, the electrooculogram, the mentalis surface electromyography and Lead II cardiography. The respiratory battery consisted of measurements of nasal/buccal air flow, pressure transducer measurements from nose, thoracic and/or abdominal effort and intercostal surface electromyography. Video monitoring has been done to check for any parasomnia events. Nocturnal oxyhemoglobin saturations were obtained by finger oximetry. Step-reyes titration with positive airway pressure was utilized to control the respiratory events, if necessary. RESULTS: During the diagnostic sleep study sleep efficiency was decreased to 69.5%. Latency to sleep onset was prolonged to 32.0 min. Sleep architecture showed stage NI was significantly increased to 24.2%, Delta sleep was absent 0%, REM sleep was increased to 33.5%. REM sleep latency very short 19.5 minutes. Respiratory channel showed 0 obstructive apneas, 0 mixed apneas, 0 central apneas, 29 hypopneas with lowest oxygen level 83%. Total apnea hypopnea index was 6.5. Heart rate was in the range between 58 and 82, average 69, atrial fibrillation. EMG showed 48.9 periodic limb movements per hour with 0.7 micro-arousals per hour. IMPRESSIONS: 1. Obstructive sleep apnea hypopnea syndrome in mild range. 2. Significant periodic limb movements have been documented. 3. Sleep onset REM have been documented during polysomnogram, which may indicate possibility of narcolepsy. 4. Hypertension. 5. Atrial fibrillation Please see other impressions from consultation PLAN: 1. Patient will be started on treatment with AutoPap and should use equipment every night for the whole night.. 2. Losing weight program. 3. Sleep hygiene with regular time in bed for at least 7-1/2 hours. 4. No driving if feeling sleepiness. 5. Please check iron profile including ferritin level. Low level of iron may increase the risk for periodic limb movements. 6. I will see patient for follow-up visit to discuss results of the sleep study, evaluate clinical response on treatment with CPAP and [place] adjustments related to mask fitting pressure and humidification. In case if patient will continue symptoms of significant excessive daytime sleepiness while on treatment with CPAP, we may consider multiple sleep latency test. Thank you very much for allowing me to participate in the management of your patient. Sincerely, Cy Orozco MD, PhD, FAASM. Diplomat of [place] [employer], Sleep Medicine Board by [place] [employer] Event Coordinator [employer] [facility] [place] cc: Ramin Wilder DO
== END 2024-08-25 04:54 | disposition home or self-care (01) ==
LOC: 3 N SLEEP 19:45
PROVIDERS: ATTEND Internal Medicine
DX: G47.33 Obstructive sleep apnea (adult) (pediatric) (principal); G47.61 Periodic limb movement disorder; I10 Essential (primary) hypertension; I48.91 Unspecified atrial fibrillation; G47.52 REM sleep behavior disorder; Z79.899 Other long term (current) drug therapy
CPT/HCPCS: 95810

== ENCOUNTER 2024-09-19 11:39 | Day surgery (SDC) | payer OTHER ==
[2024-09-14 13:01] VITALS: BMI 35.3
[~2024-09-19 11:39] MED LIST: HYDROmorphone 0.5 MG/0.5 ML SYRINGE IVP PRN; LACTATED RINGERS 1,000 ML IV SCH; SODIUM CHLORIDE 0.9% 1,000 ML IV SCH
[2024-09-19 12:49] LABS: Glucose,Whole Blood 87 mg/dL (70-110)
[2024-09-19] MEDS: MIDAZOLAM 2 MG/2 ML VIAL IV ONE (12:53)
[2024-09-19] MEDS: IV FLUID CONTINUATION 1,000 ML IV ONE ×2 (13:05→14:13)
[2024-09-19 13:16] LABS: ALT 39 U/L (4-49); AST 35 U/L (17-59); African American GFR (CKD) >90 (>60 ml/min/1.73 sqM); Albumin 4.4 g/dL (3.5-5.0); Alkaline Phosphatase 102 U/L (38-126); Anion Gap 10 mmol/L; Blood Urea Nitrogen 11 mg/dL (9-20); Calcium 9.3 mg/dL (8.4-10.2); Carbon Dioxide 28 mmol/L (22-30); Chloride 100 mmol/L (98-107); Glucose 86 mg/dL (74-99); Non-African American GFR(CKD) 90 (>60 ml/min/1.73 sqM); Sodium 138 mmol/L (137-145); Total Bilirubin 0.8 mg/dL (0.2-1.3); Total Protein 7.1 g/dL (6.3-8.2)
[2024-09-19] MEDS ORDERED: PHENYLEPHRINE-0.9% NACL SYG 1,000 MCG/10 ML SYRINGE ONE (14:12)
[2024-09-19] MEDS ORDERED: ISOPROTERENOL 250 MCG/1.25 ML SYR IV ONE (14:12)
[2024-09-19] MEDS ORDERED: VASOPRESSIN 20 UNIT/ML 1 ML VIAL ONE (14:12)
[2024-09-19] MEDS ORDERED: PHENYLEPHRINE 10 MG/ML VIAL ONE (14:12)
[2024-09-19] MEDS ORDERED: fentaNYL (PF) 50 MCG/ML 2 ML AMP ONE (14:12)
[2024-09-19] MEDS ORDERED: SUCCINYLCHOLINE CHLORIDE 200 MG/10 ML VIAL IV ONE (14:12)
[2024-09-19] MEDS ORDERED: HEPARIN SODIUM,PORCINE 10,000 UNIT/ML 1 ML VIAL ONE (14:12)
[2024-09-19] MEDS ORDERED: PROPOFOL 10 MG/ML 20 ML VIAL IV ONE (14:12)
[2024-09-19] MEDS ORDERED: MIDAZOLAM 2 MG/2 ML VIAL ONE (14:12)
[2024-09-19] MEDS: HEPARIN SODIUM,PORCINE 10,000 UNIT in SODIUM CHLORIDE 0.9% 1,000 ML IRRIGATION ONE (14:13)
[2024-09-19] MEDS: HEPARIN SODIUM,PORCINE (1 ML) 2,500 UNIT in SODIUM CHLORIDE 0.9% 250 ML IRRIGATION ONE (14:14)
[2024-09-19] MEDS: HEPARIN SOD,PORK IN 0.45% NACL 25,000 UNIT in 0.45% NACL 1 250ML.BAG IV ONE (14:14)
[2024-09-19] MEDS: LIDOCAINE 1% INJ 10MG/ML (20 ML MDV) SQ ONE ×2 (14:53→14:56)
[2024-09-19] MEDS: IOPAMIDOL-370 100ML BTL INJ ONE (14:59)
[2024-09-19] MEDS: LACTATED RINGERS 1,000 ML IV ONE (16:40)
--- NOTE | 2024-09-19 17:33 | P.PRLE ---
RE: LexaalixAidan Dear Vlad Thank you for referring Aidan Tamayo for management of recurrent, long paroxysms of atrial fibrillation. Today he was in atrial fibrillation and had been so for the past week. Although his pattern is paroxysmal, he experiences prolonged episodes lasting for over a week at a time. He underwent successful A-fib ablation with 1. Antral level pulmonary vein isolation with complete entrance block. 2. Ablation of the left atrial roof with successful ablation of the roof electrograms There was termination of atrial fibrillation just after the left atrial roof was completed. Intracardiac echo showed 1. a very enlarged left atrium of greater than 5.5 cm measured from the fossa ovalis to the left sided pulmonary veins 2. Mild thickening of the pericardium suggestive of past pericarditis I have asked him to continue apixaban 5 mg twice daily uninterrupted for the next 2 months and have stopped diltiazem. He will continue all his other medications unchanged and will see you in about a week. I applied the Vascade closure devices on the 2 left femoral 8 [place] venous accesses and a combination of Perclose plus Vascade XL for the 16 [place] venous sheath on the right femoral vein Good hemostasis was achieved Thank you for entrusting me with the care of the patient Warm regards Sincerely Kobe Villasenor
--- NOTE | 2024-09-19 17:36 | P.HPCAR ---
History of Present Illness This is Dr. Villasenor dictating an H/P on this patient The patient was interviewed and examined IMPRESSION / ASSESSMENT: Long paroxysms of atrial fibrillation, symptomatic with shortness of breath lightheadedness and palpitations Past history of morbid obesity with significant weight reduction Past history of alcohol abuse, with significant reduction In atrial fibrillation today and has been so for the past week PLAN: Proceed with A-fib ablation. Continue anticoagulation with Eliquis, heparin dose calculated Following ablation will consider stopping Cardizem CD HPI Patient has been in atrial fibrillation for the last 1 week with associated palpitations and shortness of breath. No chest discomfort angina or loss of consciousness He denies any fever chills cough and upper respiratory infection ROS: No fever chills or rigors, no cough, phlegm or expectoration, no nausea, vomiting or diarrhea, no hematuria, dysuria, no musculoskeletal complaints, no strokes or seizures, no skin lesions. EXAMINATION: Pulse rate 118 beats a minute at rest, afebrile Blood pressure 142/88 mmHg Heart sounds are irregular no murmurs Breath sounds are clear no rhonchi no crackles No JVD No lower extremity edema Soft abdomen nontender REVIEW OF LABS, ECG & MEDICAL DATA Sodium 138 potassium 4.0 both normal BUN 11 and creatinine 1.0 Liver function tests are normal TSH is 0.7, normal Physical Exam Vitals: Vital Signs Temp Pulse Resp BP BP Pulse Ox 09/19/24 13:12 98.5 F 118 H 16 142/88 139/76 98 Intake and Output 09/19/24 09/19/24 09/19/24 06:59 14:59 22:59 Intake Total 754 0 Balance 754 0 Intake: IV 754 0 Other: Weight 130.2 kg Past Medical History Past Medical History: Atrial Fibrillation, GERD/Reflux, Hypertension, Sleep Apnea/CPAP/BIPAP Additional Past Medical History / Comment(s): See Dr. Villasenor H+P. uses CPAP. History of Any Multi-Drug Resistant Organisms: None Reported Past Surgical History: Adenoidectomy, Tonsillectomy Additional Past Surgical History / Comment(s): Colonoscopy Past Anesthesia/Blood Transfusion Reactions: No Reported Reaction Additional Past Anesthesia/Blood Transfusion Reaction / Comment(s): No hx of blood transfusion to date. Smoking Status: Former smoker - Past Family History Mother Family Medical History: Coronary Artery Disease (CAD), CVA/TIA, Hypertension Father Additional Family Medical History / Comment(s): Emphysema Physical Examination Vital Signs Temp Pulse Resp BP BP Pulse Ox 09/19/24 13:12 98.5 F 118 H 16 142/88 139/76 98 Intake and Output 09/19/24 09/19/24 09/19/24 06:59 14:59 22:59 Intake Total 754 0 Balance 754 0 Intake: IV 754 0 Other: Weight 130.2 kg Results 09/19/24 12:35 Cardiac Enzymes 09/19/24 Range/Units 12:35 AST 35 (17-59) U/L Comprehensive Metabolic Panel 09/19/24 Range/Units 12:35 Sodium 138 (137-145) mmol/L Potassium 4.0 (3.5-5.1) mmol/L Chloride 100 (98-107) mmol/L Carbon Dioxide 28 (22-30) mmol/L BUN 11 (9-20) mg/dL Creatinine 0.98 (0.66-1.25) mg/dL Glucose 86 (74-99) mg/dL Calcium 9.3 (8.4-10.2) mg/dL AST 35 (17-59) U/L ALT 39 (4-49) U/L Alkaline Phosphatase 102 (38-126) U/L Total Protein 7.1 (6.3-8.2) g/dL Albumin 4.4 (3.5-5.0) g/dL Current Medications Generic Name Dose Route Start Last Admin Trade Name Freq PRN Reason Stop Dose Admin Acetaminophen 650 mg 09/19/24 17:18 Acetaminophen Tab 325 Mg Tab PO Q6HR PRN Mild Pain (Scale 1 to 3) Apixaban 10 mg 09/20/24 09:00 Apixaban 5 Mg Tab PO DAILY NIKI Protocol Fluoxetine HCl 20 mg 09/20/24 09:00 Fluoxetine Hcl 20 Mg Cap PO DAILY NIKI Hydromorphone HCl 0.5 mg 09/19/24 06:04 Hydromorphone 0.5 Mg/0.5 Ml Syringe IVP 09/20/24 06:03 Q5M PRN Phase 1 or 2 - Pain Control Acetaminophen 1,000 mg/ IV 100 mls @ 400 mls/hr 09/19/24 18:00 Solution IVPB 09/19/24 18:14 ONCE ONE Metoprolol Succinate 100 mg 09/20/24 09:00 Metoprolol Succinate (Er) 100 Mg Tab.Er.24h PO DAILY NIKI Pantoprazole Sodium 40 mg 09/20/24 07:30 Pantoprazole 40 Mg Tablet PO AC-BRKFST NIKI Sodium Chloride 12 ml 09/19/24 17:18 Sodium Chloride 0.9% Flush 10 Ml Syringe IV Q12HR PRN Line Flush Triamterene/Hydrochlorothiazide 1 each 09/20/24 09:00 Triamterene-Hctz 37.5-25mg 1 Each Cap PO DAILY NIKI Intake and Output 09/19/24 09/19/24 09/19/24 06:59 14:59 22:59 Intake Total 754 0 Balance 754 0 Intake: IV 754 0 Other: Weight 130.2 kg Patient Weight 09/20/24 06:59 Weight 130.2 kg 09/19/24 12:35
--- NOTE | 2024-09-19 17:43 | P.EPPROC ---
- EP Procedure Note Electrophysiology Procedure Note: PROCEDURE A. fib ablation with antral level PVI, left atrial septal ablation and left atrial roof ablation DIAGNOSIS Long paroxysms atrial fibrillation, symptomatic, refractory to therapy. Episodes last for greater than 5 to 7 days RESULT No left atrial appendage mass seen on intracardiac echo, enlarged left atrium, thickened pericardium consistent with old pericarditis Successful A. fib ablation/pulmonary vein isolation of all veins using cryo- ablation at an antral level Complete entrance block in all 4 veins confirmed Left atrial septal ablation Left atrial roof ablation, successful No evidence for phrenic nerve injury Esophageal deflection YES PROCEDURE DETAILS Written informed consent prior to procedure. Patient brought to the EP lab. General anesthesia given. Heparin administered. A city maintained above 300 seconds Both groins prepped and draped per protocol and venous sheaths placed. Esophagus intubated, circa catheter for temperature monitoring an endoscope for possible esophageal deflection. Phrenic nerve monitoring performed. Esophageal temperature monitoring performed. Esophageal deflection performed if circa catheter overlapping with the balloon or circa temperature less than 27.5C Intracardiac echocardiography performed. Pericardium evaluated. Left atrial appendage evaluated. Left atrium evaluated along with pulmonary veins Transseptal catheterization performed under fluoroscopic guidance and intracardiac echo guidance Cryoablation sheath exchanged, balloon catheter along with achieve catheter placed in the left atrium. Pulmonary veins isolated in the following sequence: Left superior pulmonary vein followed by left inferior pulmonary vein, followed by right inferior pulmonary vein and lastly right superior pulmonary vein. Phrenic nerve stimulation along with capture thresholds within the SVC and right superior pulmonary vein to identify the phrenic nerve proximity to the cryo- balloon. Pulmonary veins isolated and confirmed with entrance and exit block. Phrenic nerve integrity confirmed at the end of the procedure Ablation of the left atrial roof performed with sequential lesions from the left superior to the right superior pulmonary veins. Ablation of the electrograms confirmed Ablation of the left atrial septum performed with cannulation of the inferior branch of the right superior vein to achieve ablation of the posterior septum of the left atrium. Ablation of electrograms confirmed Diagnostic catheters for the high right atrium, His bundle, coronary sinus placed. LA and RA pressures recorded LA pressure: Diagnostic EP study with coronary sinus pacing and recording Baseline measurements: Patient initially in atrial fibrillation. Once the right sided veins, left atrial roof and the left superior vein was ablated, termination of atrial fibrillation occurred In sinus rhythm sinus cycle length 765 ms, OR interval 130 ms, QRS 110 ms and QT 373 ms AH 82 ms and HV interval 39 ms In sinus rhythm sinus node recovery times were 1153, 1226 and 1098 ms. Corrected sinus node recovery times normal AV node Wenckebach block 310 ms High-dose Isopril used Atrial ERP 600/less than 300 ms Venous sheaths were removed and hemostasis assured with a closure device. Patient extubated and transferred to recovery PROCEDURES PERFORMED Diagnostic EP study CS pacing and recording Left and right transseptal catheterization Catheter the mapping of the tachycardia Intracardiac echocardiography Pulmonary vein isolation with transseptal and comprehensive EPS, 30528 Drug infusion, +[id number] Left atrial roof line, +[id number] Linear ablation, septum left atrium, +[id number]
[2024-09-19] MEDS: ACETAMINOPHEN IV (For NPO) 1,000 MG in EMPTY BAG 1 BAG IVPB ONE (18:03)
[2024-09-19] MEDS: ONDANSETRON 4 MG/2 ML VIAL IVP ONE (18:33)
[2024-09-19] MEDS: DEXAMETHASONE SOD PHOSPHATE 4 MG/ML 1 ML VIAL IV ONE (18:33)
[2024-09-19] MEDS: APIXABAN 5 MG TAB PO ONE (22:08)
[2024-09-20] MEDS: PANTOPRAZOLE 40 MG TABLET PO SCH (05:53)
[2024-09-20 08:26] VITALS: BP 134/88; PULSE 85; RESP 16; TEMP 98.4
[2024-09-20] MEDS: TRIAMTERENE-HCTZ 37.5-25MG 1 EACH CAP PO SCH (08:54)
[2024-09-20] MEDS: APIXABAN 5 MG TAB PO SCH (08:54)
[2024-09-20] MEDS: METOPROLOL SUCCINATE (ER) 100 MG TAB.ER.24H PO SCH (08:55)
[2024-09-20] MEDS: FLUoxetine HCL 20 MG CAP PO SCH (08:55)
[2024-09-20] MEDS: ACETAMINOPHEN TAB 325 MG TAB PO PRN (08:59)
--- NOTE | 2024-09-20 15:16 | P.DS ---
Providers Attending physician: Kobe Villasenor Primary care physician: Ramin Wilder DO Hospital Course: Patient is doing well. No chest discomfort dizziness lightheadedness or palpitations His lungs are clear no rhonchi or crackles Heart sounds are normal and regular no murmurs Groins of healed well no hematoma no swelling Blood pressure 134/88 mmHg pulse rate in the 80s afebrile Impression Paroxysmal atrial fibrillation but long duration paroxysms of over a week at a time Status post antral level PVI, left atrial septal ablation and ablation of the left atrial roof Termination of atrial fibrillation during the procedure Plan Continue anticoagulation Stop diltiazem Continue metoprolol Continue anticoagulation follow-up with his primary student services counselor Dr. Russell Dimas Plan - Discharge Summary Discharge Rx Participant: No New Discharge Prescriptions: Discontinued dilTIAZem HCL [dilTIAZem HCL 24Hr ER (CD)] 180 mg PO DAILY No Action LORazepam [Ativan] 1 mg PO BID PRN PRN Reason: Anxiety Metoprolol Succinate (ER) [Toprol Xl] 100 mg PO DAILY Omeprazole 20 mg PO DAILY Triamterene-Hctz 37.5-25Mg [Dyazide 37.5-25 Capsule] 1 cap PO DAILY Apixaban [Eliquis] 10 mg PO DAILY Multivitamins, Thera [Multivitamin (formulary)] 1 tab PO DAILY Ashwagandha (Unknown Dose) 1 dose PO QAM dilTIAZem HCL [dilTIAZem HCL 24Hr ER (CD)] 180 mg PO DAILY FLUoxetine HCL [PROzac] 20 mg PO DAILY Cholecalciferol (Vitamin D3) [Vitamin D3 (125 MCG = 5,000 IU)] 2 tab PO DAILY Discharge Medication List LORazepam [Ativan] 1 mg PO BID PRN 10/03/18 [History] Metoprolol Succinate (ER) [Toprol Xl] 100 mg PO DAILY 10/03/18 [History] Omeprazole 20 mg PO DAILY 10/03/18 [History] Triamterene-Hctz 37.5-25Mg [Dyazide 37.5-25 Capsule] 1 cap PO DAILY 10/03/18 [History] Apixaban [Eliquis] 10 mg PO DAILY 08/01/24 [History] FLUoxetine HCL [PROzac] 20 mg PO DAILY 08/01/24 [History] Ashwagandha (Unknown Dose) 1 dose PO QAM 09/14/24 [History] Cholecalciferol (Vitamin D3) [Vitamin D3 (125 MCG = 5,000 IU)] 2 tab PO DAILY 09/14/24 [History] Multivitamins, Thera [Multivitamin (formulary)] 1 tab PO DAILY 09/14/24 [History] dilTIAZem HCL [dilTIAZem HCL 24Hr ER (CD)] 180 mg PO DAILY 09/20/24 [History] Follow up Appointment(s)/Referral(s): Vlad Dimas MD [REFERRING] - 1 Week (office will call and make appt.) Patient Instructions/Handouts: Cardiac Ablation (DC) Activity/Diet/Wound Care/Special Instructions: Post EP study - Ablation instructions 1. Keep access sites dry for 2 days. 2. No heavy lifting or straining for 2 days. 3. Avoid bending the hips repeatedly for 2 days. 4. You may go up and down stairs slowly 5. If you have had an ablation for atrial fibrillation or atrial flutter and are on a blood thinner, do not stop the blood thinner even temporarily for 3 months post ablation Call if the following is noted 1. Bleeding, increasing swelling or pain at the access sites. 2. Increasing chest discomfort, especially upon taking a deep breath. 3. Increasing shortness of breath, at rest or with exertion. 4. Undue cough / phlegm 5. Difficulty or pain while swallowing. 6. Pain or change in color in the extremities. 7. Fever, chills, rigors. 8. Increasing headache or neurologic symptoms. 9. Dizziness, fainting, palpitations For patients who have undergone an A-fib ablation /atrial flutter ablation Strict instruction; do NOT stop anticoagulation (Eliquis/Xarelto/Pradaxa) for the next 2 months temporarily, for any elective, nonurgent surgery. This increases the risk of stroke, post A-fib ablation Hold diltiazem for now. Continue all other medications Discharge Disposition: HOME SELF-CARE
== END 2024-09-20 12:56 | disposition home or self-care (01) ==
LOC: CATHEP 11:39 → 6NMEDSUR 17:05 → CATHEP 09-20 12:56
PROVIDERS: ATTEND Internal Medicine Clinical Cardiac Electrophysiology
DX: I48.0 Paroxysmal atrial fibrillation (principal); I10 Essential (primary) hypertension; G47.30 Sleep apnea, unspecified; K21.9 Gastro-esophageal reflux disease without esophagitis; E66.01 Morbid (severe) obesity due to excess calories; Z68.36 Body mass index [BMI] 36.0-36.9, adult; Z82.49 Family history of ischemic heart disease and other diseases of the circulatory system; Z82.3 Family history of stroke; Z90.89 Acquired absence of other organs; Z87.891 Personal history of nicotine dependence; Z79.01 Long term (current) use of anticoagulants; Z79.899 Other long term (current) drug therapy
CPT/HCPCS: 93623; 93656; 93657; 86900; 86901; 80053; 84443; 86850; C1894; C1769; C1760 ×3; C1730 ×2; C1759; C1733; C1766; J2250; J1644 ×3; J2003; J0131; Q9967

== ENCOUNTER → 2024-10-19 | Outpatient (CLI) | payer OTHER ==
[2024-10-19 16:19] VITALS: BP 142/87; PULSE 78; RESP 16; TEMP 98.3
--- NOTE | 2024-10-19 16:33 | P.PROGSL ---
Subjective DATE: 10/19/2024 FOLLOW UP VISIT. Patient with obstructive sleep apnea hypopnea syndrome return to sleep center for follow-up visit. Recently patient had sleep study which documented obstructive sleep apnea hypopnea syndrome. Patient was initiated on PAP therapy and today is first visit after treatment was started. Patient was able to use PAP equipment every night for the whole night. After started treatment with CPAP patient sleeps better and feels better during the day. The patient does not have significant problems with the mask, PAP pressure and humidification. [place] sleepiness scale is 3, which is perfect. I checked information from PAP unit. PAP unit pressure 5-13, average 8.5 cm H2O. Usage is 90% for more then 4 hours, average 6.9 hours per night. Leak is 16 l/m, which is in acceptable range. Apnea Hypopnea Index is 2.2, which is normal. MEDICATIONS: Please see below During physical exam: GENERAL: A pleasant patient without any distress. VITAL SIGNS: Please see below, weight 286 pounds. HEENT: PERRLA, EOMI.low position of soft palate, Mallapati 3. NECK: Supple. No JVD. LUNGS: Clear to percussion and to auscultation. Good air exchange. No wheezing or rhonchi. HEART: S1, S2 regular. ABDOMEN: Soft and nontender.[] EXTREMITIES: No clubbing or cyanosis. 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 No focal deficit. Impressions: 1. Obstructive sleep apnea-hypopnea syndrome. Patient demonstrated great compliance with treatment, benefiting from treatment. 2. History of atrial fibrillation, status post cardiac ablation 1 month ago. 3. Obesity, BMI 37.7. 4. Hypertension. 5. Seasonal allergy. 6. Acid reflux. 7. Anxiety. 8. Status post adenoidectomy and tonsillectomy. Plan: 1. Continue using PAP equipment every night for the whole night. 2. To change air filter at least 1-2 times per month. 3. PAP unit should stay lower then position of the head. 4. Advised patient to remove all remaining water from humidifier canister daily and make it dry after each usage. Refill canister with fresh distilled water before each usage. 5. Sleep hygiene with regular time in bed for at least 8 hours. 6. Precautions related to driving. No driving if feel any sleepiness. 7. I will maintain prescription for PAP supplies including mask, tube, filters. 8. Follow up visit in 8 months or earlier if patient has any problems. 9. Watching and losing weight. Thank you very much for allowing me to participate in the management of your patient. Cy Orozco MD, PhD, FAASM. Diplomat of [place] [employer], Sleep Medicine Board by [employer] [facility] [place] Objective - Vital Signs Vital Signs: Vital Signs Temp 98.3 F 10/19/24 16:18 Pulse 78 10/19/24 16:18 Resp 16 10/19/24 16:18 BP 142/87 10/19/24 16:18 Pulse Ox 96 10/19/24 16:18 FiO2 Home Medications: Home Medications Medication Instructions Recorded Confirmed Type LORazepam [Ativan] 1 mg PO BID PRN 10/03/18 09/14/24 History Metoprolol Succinate (ER) [Toprol 100 mg PO DAILY 10/03/18 09/14/24 History Xl] Omeprazole 20 mg PO DAILY 10/03/18 09/14/24 History Triamterene-Hctz 37.5-25Mg 1 cap PO DAILY 10/03/18 09/14/24 History [Dyazide 37.5-25 Capsule] Apixaban [Eliquis] 10 mg PO DAILY 08/01/24 09/14/24 History FLUoxetine HCL [PROzac] 20 mg PO DAILY 08/01/24 09/14/24 History Ashwagandha (Unknown Dose) 1 dose PO QAM 09/14/24 09/14/24 History Cholecalciferol (Vitamin D3) 2 tab PO DAILY 09/14/24 09/14/24 History [Vitamin D3 (125 MCG = 5,000 IU)] Multivitamins, Thera [Multivitamin 1 tab PO DAILY 09/14/24 09/14/24 History (formulary)] dilTIAZem HCL [dilTIAZem HCL 24Hr 180 mg PO DAILY 09/20/24 09/20/24 History ER (CD)]
== END ==
LOC: 3 N SLEEP 16:07
PROVIDERS: ATTEND Internal Medicine
DX: G47.33 Obstructive sleep apnea (adult) (pediatric) (principal); E66.9 Obesity, unspecified; K21.9 Gastro-esophageal reflux disease without esophagitis; I10 Essential (primary) hypertension; F41.9 Anxiety disorder, unspecified; Z86.79 Personal history of other diseases of the circulatory system; Z68.37 Body mass index [BMI] 37.0-37.9, adult; Z90.89 Acquired absence of other organs
CPT/HCPCS: 99212